=== PATIENT | female | born 1960 | race Caucasian/White ===

== ENCOUNTER 2020-06-19 14:54 | Emergency (ER) | payer OTHER ==
--- OUTSIDE RECORDS SUMMARY | 2020-06-19 14:57 | XMS REPORT | Clinical Summary ---
:1960 Author Organization [facility] Address [address] [place] [address] Care Team Providers Name Role Phone Suzy Dean Primary Care Provider Allergies No Known Active Allergies Medications Medication Sig Dispensed Refills Start Date End Date Status levothyroxine 150 mcg. 0 11/21/2014 Activ e (SYNTHROID, LEVOXYL) 150 mcg tablet losartan (COZAAR) 50 MG TK 1 T PO D 3 06/03/2016 Active tablet metFORMIN (GLUCOPHAGE) Take 500 mg by 0 Active 500 mg tablet mouth 2 (two) times a day with meals. ibuprofen (ADVIL) 200 Take 200 mg by 0 Active MG tablet mouth. [id number] Take 9 g by mouth 1 packet 0 05/18/2019 Active pgh-BnUe-IRi-asb-C take as directed 140-9-5.2 gram powder (as directed). in packet, sequential Active Problems Problem Noted Date De Quervain's tenosynovitis, right 08/12/2018 Osteoarthritis of right knee 07/15/2016 Encounters Date Type Specialty Care Team Description 06/18/2020 Travel 06/24/2019 Telephone Gastroenterology Alize Back MA 06/23/2019 Documentation Gastroenterology Enrique Rudd MD 06/21/2019 Telephone Gastroenterology Alize Back MA after 06/19/2019 Surgical History Surgery Date Site/Laterality Comments SECTION x3 KNEE ARTHROSCOPY Right CHOLECYSTECTOMY CARPAL TUNNEL RELEASE Right 1998 ARTHROPLASTY, KNEE, 07/15/2016 Knee/Right Procedure: T OTAL KNEE UNICOMPARTMENTAL ARTHROPLASTY; Surgeon: José Martinez MD; Location: [place] [id number] OR; Service: Orthopedics; Laterality: Righ t; Medical devices from this surgery are in the Implants sec tion. GALLBLADDER SURGERY ORTHOPEDIC SURGERY RELEASE, TENDON, HAND, FOR 09/24/2018 Hand/Right Proce dure: RELEASE, DEQUERVAIN'S TENOSYNOVITIS TENDO N, HAND, FOR DEQUERVAIN'S TENOSYNOVITIS; Surgeon: Maryanne Duran MD; Locatio n: [facility]; Service: Hand; Laterality: Righ t; TUBAL LIGATION 03/03/1987 - 04/02/1987 COLONOSCOPY 08/03/2011 - 08/02/2012 Medical History Medical History Date Comments Hypertension Hypothyroidism Anesthesia PONV HX/ nfhap. wear s full dentures PONV (postoperative nausea and vomiting) Exercise tolerance finding walking 30 m inutes/ 2 days/week. can climb 2 flights of s tairs. denies chest pain or sob Diabetes mellitus (HCC) "insulin resista nce" Wrist pain, right Anemia 2012 Gall stone 2016 Gall bladder removed Family History Medical History Relation Name Comments Cancer Father Father Colon cancer Father Father Hypertension Mother Stroke Mother Relation Name Status Comments Father Father Alive Mother Alive Social History Tobacco Use Types Packs/Day Years Used Date Former Smoker Cigarettes 0.25 1 04/09/1979 - 0 01/16/1980 Smokeless Tobacco: Former User Comments: quit 30 years ago Alcohol Use Drinks/Week oz/Week Comments Yes 2 Standard drinks or equivalent 2.0 cople of drinks a week Sex Assigned at Date Recorded Not on file Job Start Date Occupation Industry Not on file Not on file Not on file COVID-19 Exposure Response Date Recorded In the last month, have you been in contact with No / Unsure 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 Last Filed Vital Signs Not on file Plan of Treatment Date Type Specialty Care Team Description 07/04/2020 Office Visit Orthopedic Surgery Charleen Martinez MD [address] [facility] [address] [place], [place] [address] [phone] Health Maintenance Due Date Last Done Comments CERVICAL CANCER SCREENING 1982 BREAST CANCER SCREENING 2011 COLONOSCOPY SCREENING 2011 SHINGLES VACCINES (#1) 2011 INFLUENZA VACCINE 03/03/2020 Implants Implanted Type Area Healthcare Manager Device Shelf Model / Identifier Expiration Serial / Date Lot Univation F Meniscal Cpomonent Knee Implants, Right: [employer] 11/30/2020 [id number] / Implanted: Qty: 1 on 07/15/2016 by José Martinez MD at [facility] Repairs, Knee / Reconstruction [id number] As Univation Xf Femurf3 Rm Knee Implants, Right: [employer] 10/31/2025 [id number] / Implanted: Qty: 1 on 07/15/2016 by José Martinez MD at [facility] Repairs, Knee / Reconstruction [id number] As Univation Xf Tibiat2 Rm Knee Implants, Right: [employer] 10/31/2025 [id number] / Implanted: Qty: 1 on 07/15/2016 by José Martinez MD at [facility] Repairs, Knee / Reconstruction [id number] Cement Bone R+G 1dose [place] - [id number] Knee Joint Right: [employer] 03/02/2020 [id number] / Implanted: 07/15/2016 at [facility] (Quantity not on file) Implants Knee / [id number] Pin Headed Thred Univl 3.2x25mm [place] - [id number] Knee Joint N/A: AES[employer]AP ORTHO 07/03/2026 [id number] / Implanted: 07/17/2016 at [facility] (Quantity not on file) Implants N/A / NA Results Not on fileafter 06/19/2019 Advance Directives For more information, please contact: [phone] Type Date Recorded Patient Diazo Technician Explanati on Advance Directives, Living Will and Medical Power of Computer Tape Librarian
[2020-06-19] MEDS ORDERED: HYDROCODONE/APAP 10/325 TAB ONE (16:16)
--- NOTE | 2020-06-19 16:59 | RAD REPORT ---
EXAM DESCRIPTION: RAD - Knee Left 3 View - 06/19/2020 4:29 pm CLINICAL HISTORY: PAIN COMPARISON: No comparisons FINDINGS: Mild medial compartment space narrowing is evident. No significant suprapatellar joint eff usion. No acute fracture or dislocation evident.
--- NOTE | 2020-06-19 17:28 | RAD REPORT ---
EXAM DESCRIPTION: US - Extremity Nonvascular Limited - 06/19/2020 5:15 pm CLINICAL HISTORY: PAIN COMPARISON: No comparisons TECHNIQUE: Real-time sonographic evaluation of the area of interest was performed. FINDINGS: A 2 x 1 cm cyst is present in the left popliteal fossa, likely Kapoor's cyst.
--- NOTE | 2020-06-19 17:39 | EDPHYS ---
Physician Documentation [facility] Name: Tabitha Jim Age: 60 yrs Sex: Female : 1960 Arrival Date: 06/19/2020 Time: 14:56 Bed 20 Private MD: ABHIJEET Yanez Stephanie ED Physician Vincent Goins HPI: 06/20 06:38 This 60 yrs old Female presents to ER via Wheelchair with complaints of Knee kdr Injury. 06:38 The patient presents with an injury, pain, that is acute, tenderness, weakness. The kdr complaints affect the posterior aspect of left knee. Context: The problem was sustained at home, resulted from an unknown cause, the patient can partially bear weight, the patient is able to ambulate, with mild difficulty, Problem is a result from a previous injury: No. Onset: The symptoms/episode began/occurred suddenly, 2 day(s) ago. Modifying factors: The symptoms are alleviated by remaining still, the symptoms are aggravated by movement, weight bearing. Associated signs and symptoms: The patient has no apparent associated signs or symptoms. Treatment prior to arrival includes: no previous treatment. Severity of symptoms: At their worst the symptoms were mild, moderate, incapacitating, in the emergency department the symptoms have improved, mildly. The patient has not experienced similar symptoms in the past. The patient has not recently seen a physician. 06:38 The patient has had pain for the last couple of days in the left knee. No known injury kdr or precipitating factors. Was walking today and she had pain in the back of her knee and her leg gave out on her. She has had a knee replacement on the right. She has no other associated injuries and does not appear in any acute distress. Historical: - Allergies: 06/19 15:21 No Known Allergies; ss - PMHx: 15:21 Hypertension; Diabetes - IDDM; Hypothyroidism; ss - PSHx: 15:21 Cholecystectomy; ; Knee surgery; ss - Immunization history:: Flu vaccine is not up to date. - Social history:: Smoking status: Patient denies any tobacco usage or history of. ROS: 06/20 06:38 Constitutional: Negative for fever, chills, and weight loss, Eyes: Negative for injury, kdr pain, redness, and discharge, ENT: Negative for injury, pain, and discharge, Neck: Negative for injury, pain, and swelling, Cardiovascular: Negative for chest pain, palpitations, and edema, Respiratory: Negative for shortness of breath, cough, wheezing, and pleuritic chest pain, Abdomen/GI: Negative for abdominal pain, nausea, vomiting, diarrhea, and constipation, Back: Negative for injury and pain, : Negative for injury, bleeding, discharge, and swelling, Skin: Negative for injury, rash, and discoloration, Neuro: Negative for headache, weakness, numbness, tingling, and seizure activity. Psych: Negative for depression, anxiety, suicide ideation, homicidal ideation, and hallucinations, Allergy/Immunology: Negative for hives, rash, and allergies, Endocrine: Negative for neck swelling, polydipsia, polyuria, polyphagia, and marked weight changes, Hematologic/Lymphatic: Negative for swollen nodes, abnormal bleeding, and unusual bruising. MS/extremity: Positive for pain, tenderness, of the posterior aspect of left knee. Exam: 06:38 Constitutional: This is a well developed, well nourished patient who is awake, alert, kdr and in no acute distress. Head/Face: Normocephalic, atraumatic. 06:38 Musculoskeletal/extremity: Extremities: grossly normal except: noted in the posterior aspect of left knee and left knee: decreased ROM, pain, tenderness, ROM: intact in all extremities, Circulation is intact in all extremities. Pulses: Joints: the left knee displays painful range of motion, swelling, tenderness, There is pain in the popliteal space and mild diffuse swelling. Vital Signs: 06/19 15:19 BP 176 / 87; Pulse 81; Resp 17; Temp 97.0; Pulse Ox 100% ; Weight 104.33 kg; Height 5 ss ft. 5 in. (165.10 cm); Pain 7/10; 16:36 BP 158 / 81; Pulse 75; Resp 18; Pulse Ox 100% on R/A; Pain 4/10; tw2 17:27 BP 145 / 81; Pulse 76; Resp 17; Pulse Ox 100% on R/A; tw2 15:19 Body Mass Index 38.27 (104.33 kg, 165.10 cm) ss MDM: 17:39 Patient medically screened. kdr 06/20 06:45 Data reviewed: vital signs, nurses notes, radiologic studies. Counseling: I had a kdr detailed discussion with the patient and/or guardian regarding: the historical points, exam findings, and any diagnostic results supporting the discharge/admit diagnosis, radiology results, the need for outpatient follow up. 06/19 15:56 Order name: Knee Left 3 View XRAY; Complete Time: 17:37 kdr 06/19 15:56 Order name: US Extrmty Nonvasular Limited; Complete Time: 17:37 kdr 06/19 17:44 Order name: Jonatan wrap-joint; Complete Time: 17:44 tw2 Administered Medications: 06/19 16:06 Drug: [place] 10 mg-325 mg 1 tabs {Note: RASS 0, pain 7/10.} Route: PO; tw2 16:36 Follow up: Response: No adverse reaction; Pain is decreased; RASS: Alert and Calm (0) tw2 Disposition: 06/19/20 17:39 Discharged to Home. Impression: Pain in left knee, Synovial cyst of popliteal space [Kapoor], left knee. - Condition is Stable. - Discharge Instructions: Kapoor Cyst, Musculoskeletal Pain, Knee Pain. - Prescriptions for Tramadol 50 mg Oral Tablet - take 1 tablet by ORAL route every 8 hours as needed; 12 tablet. - Medication Reconciliation Form, Thank You Letter, Prescription Opioid Use, Work release form form. - Follow up: Private Physician; When: 2 - 3 days; Reason: If symptoms return, Further diagnostic work-up, Recheck today's complaints, Continuance of care, Re-evaluation by your physician. Follow up: Frank Whelan MD; When: 2 - 3 days; Reason: If symptoms return, Further diagnostic work-up, Recheck today's complaints, Continuance of care, Re-evaluation by your physician. - Problem is new. - Symptoms have improved. Signatures: Dispatcher [employer] EDMS Vincent Goins MD MD [facility] Shelby Evangelista RN RN ss Hilary Butler RN RN tw2 Corrections: (The following items were deleted from the chart) 17:51 17:39 06/19/2020 17:39 Discharged to Home. Impression: Pain in left knee; Synovial cyst tw2 of popliteal space [Kapoor], left knee. Condition is Stable. Forms are Work release form, Medication Reconciliation Form, Thank You Letter, Antibiotic Education, Prescription Opioid Use. Follow up: Private Physician; When: 2 - 3 days; Reason: If symptoms return, Further diagnostic work-up, Recheck today's complaints, Continuance of care, Re-evaluation by your physician. Follow up: Frank Whelan; When: 2 - 3 days; Reason: If symptoms return, Further diagnostic work-up, Recheck today's complaints, Continuance of care, Re-evaluation by your physician. Problem is new. Symptoms have improved. kdr
--- NOTE | 2020-06-19 17:39 | ER ---
Nurse's Notes [facility] Name: Tabitha Jim Age: 60 yrs Sex: Female : 1960 Arrival Date: 06/19/2020 Time: 14:56 Bed 20 Private MD: ABHIJEET Yanez Stephanie Diagnosis: Pain in left knee;Synovial cyst of popliteal space [Kapoor], left knee Presentation: 06/19 15:19 Chief complaint: Patient states: Left knee pain since Thursday. Left knee gave out ss today. Coronavirus screen: Client denies travel out of the [place] in the last 14 days. At this time, the client does not indicate any symptoms associated with coronavirus-19. Ebola Screen: Patient denies travel to an Ebola-affected area in the 21 days before illness onset. Initial Sepsis Screen: Does the patient meet any 2 criteria? No. Patient's initial sepsis screen is negative. Does the patient have a suspected source of infection? Yes: Bone or joint infection. Risk Assessment: Do you want to hurt yourself or someone else? Patient reports no desire to harm self or others. Onset of symptoms was June 16, 2020. 15:19 Method Of Arrival: Wheelchair ss 15:19 Acuity: DON 4 ss Historical: - Allergies: 15:21 No Known Allergies; ss - PMHx: 15:21 Hypertension; Diabetes - IDDM; Hypothyroidism; ss - PSHx: 15:21 Cholecystectomy; ; Knee surgery; ss - Immunization history:: Flu vaccine is not up to date. - Social history:: Smoking status: Patient denies any tobacco usage or history of. Screenin:26 Abuse screen: Denies threats or abuse. Nutritional screening: No deficits noted. tw2 Tuberculosis screening: No symptoms or risk factors identified. Fall Risk None identified. Assessment: 15:26 General: Appears in no apparent distress. uncomfortable, obese, well groomed, Behavior tw2 is calm, cooperative, appropriate for age. Pain: Complains of pain in left knee. Neuro: Level of Consciousness is awake, alert, obeys commands, Oriented to person, place, time, situation. Cardiovascular: Patient's skin is warm and dry. Respiratory: Airway is patent Respiratory effort is even, unlabored, Respiratory pattern is regular, symmetrical. GI: No signs and/or symptoms were reported involving the gastrointestinal system. : No signs and/or symptoms were reported regarding the genitourinary system. EENT: No signs and/or symptoms were reported regarding the EENT system. Derm: No signs and/or symptoms reported regarding the dermatologic system. Musculoskeletal: Circulation, motion, and sensation intact. Range of motion: intact in all extremities. 15:54 Reassessment: provider at bedside at this time. tw2 16:36 Reassessment: Patient appears in no apparent distress at this time. No changes from tw2 previously documented assessment. Patient and/or family updated on plan of care and expected duration. Pain level reassessed. Patient is alert, oriented x 3, equal unlabored respirations, skin warm/dry/pink. Patient states feeling better. Patient states symptoms have improved. 17:27 Reassessment: Patient appears in no apparent distress at this time. No changes from tw2 previously documented assessment. Patient and/or family updated on plan of care and expected duration. Pain level reassessed. Patient is alert, oriented x 3, equal unlabored respirations, skin warm/dry/pink. 17:46 Reassessment: provider at bedside at this time discussing results. tw2 17:51 Reassessment: Patient appears in no apparent distress at this time. No changes from tw2 previously documented assessment. Patient and/or family updated on plan of care and expected duration. Pain level reassessed. Patient is alert, oriented x 3, equal unlabored respirations, skin warm/dry/pink. Vital Signs: 15:19 BP 176 / 87; Pulse 81; Resp 17; Temp 97.0; Pulse Ox 100% ; Weight 104.33 kg; Height 5 ss ft. 5 in. (165.10 cm); Pain 7/10; 16:36 BP 158 / 81; Pulse 75; Resp 18; Pulse Ox 100% on R/A; Pain 4/10; tw2 17:27 BP 145 / 81; Pulse 76; Resp 17; Pulse Ox 100% on R/A; tw2 15:19 Body Mass Index 38.27 (104.33 kg, 165.10 cm) ss ED Course: 14:56 Patient arrived in ED. as 14:56 ABHIJEET Yanez Stephanie is Private Physician. as 15:18 Vincent Goins MD is Attending Physician. kdr 15:20 Triage completed. ss 15:20 Arm band placed on Patient placed in an exam room, on a stretcher. ss 15:21 Placed in gown. Call light in reach. Adult w/ patient. tw2 15:25 Hilary Butler, RN is Primary Nurse. tw2 16:29 Knee Left 3 View XRAY In Process Unspecified. EDMS 17:15 US Extrmty Nonvasular Limited In Process Unspecified. EDMS 17:38 Frank Whelan MD is Referral Physician. kdr 17:46 No provider procedures requiring assistance completed. Patient did not have IV access tw2 during this emergency room visit. Administered Medications: 16:06 Drug: [place] 10 mg-325 mg 1 tabs {Note: RASS 0, pain 7/10.} Route: PO; tw2 16:36 Follow up: Response: No adverse reaction; Pain is decreased; RASS: Alert and Calm (0) tw2 Outcome: 17:39 Discharge ordered by MD. kdr 17:46 Discharged to home via wheelchair, with family. tw2 17:46 Condition: stable 17:46 Discharge instructions given to patient, family, Instructed on discharge instructions, follow up and referral plans. safety practices, [facility] checks Demonstrated understanding of instructions, follow-up care, medications, Prescriptions given X 1. 17:51 Patient left the ED. tw2 Signatures: Dispatcher [employer] EDMS Vincent Goins MD MD kdr Amy Hernandez Shelby, RN RN Hilary Butler, KEON RN tw2 Corrections: (The following items were deleted from the chart) 16:37 16:36 Reassessment: Patient appears in no apparent distress at this time. No changes tw2 from previously documented assessment. Patient and/or family updated on plan of care and expected duration. Pain level reassessed. Patient is alert, oriented x 3, equal unlabored respirations, skin warm/dry/pink. tw2
[2020-06-20 01:45] VITALS: TEMP 97; O2SAT 100
[2020-06-20 01:48] VITALS: BP 145/81
== END 2020-06-19 17:51 | disposition home or self-care (01) ==
LOC: ER 14:54
DX: M71.22 Synovial cyst of popliteal space [Baker], left knee (principal); I10 Essential (primary) hypertension
CPT/HCPCS: 76882; 99283

== ENCOUNTER 2020-08-22 18:57 | Emergency (ER) | payer OTHER ==
--- OUTSIDE RECORDS SUMMARY | 2020-08-22 19:00 | XMS REPORT | Clinical Summary ---
:1960 Author Organization [facility] Address [address] [place] [address] Care Team Providers Name Role Phone Asked, No Pcp Primary Care Provider Unavailable Allergies No Known Active Allergies Medications Medication Sig Dispensed Refills Start Date End Date Status levothyroxine 150 mcg. 0 11/21/2014 Activ e (SYNTHROID, LEVOXYL) 150 mcg tablet ibuprofen (ADVIL) Take 200 mg 0 Active 200 MG tablet by mouth. Accu-Chek Guide 0 08/03/2020 Act melissa test strips strip test strips Accu-Chek Fastclix 0 08/03/2020 Active Lancet Drum misc levothyroxine TAKE 137 MCG 0 05/17/2020 Ac tive (SYNTHROID) 137 BY MOUTH 2 mcg tablet (TWO) TIMES A WEEK. losartan (COZAAR) 0 08/03/2020 A ctive 100 MG tablet metFORMIN XR 0 07/11/2020 Active (GLUCOPHAGE-XR) 500 mg 24 hr tablet naloxegoL Take 1 tablet 30 tablet 1 08/10/2020 Activ e (MOVANTIK) 25 mg (25 mg total) tablet tablet by mouth daily before breakfast. tiZANidine Take 1 tablet 30 tablet 2 08/10/2020 Acti ve (ZANAFLEX) 2 MG (2 mg total) 1 tablet by mouth every 8 (eight) hours as needed for muscle spasms for up to 30 days. ondansetron Take 1 tablet 20 tablet 2 08/10/2020 Act melissa (Zofran) 4 MG (4 mg total) tablet by mouth every 8 (eight) hours as needed for nausea or vomiting. zolpidem (AMBIEN) Take 1 tablet 30 tablet 0 08/10/2020 02 Active 5 MG tablet (5 mg total) 1 by mouth nightly as needed for sleep for up to 30 days. losartan (COZAAR) TK 1 T PO D 3 06/03/2016 Discontinued 50 MG tablet 1 (Med Li st Cleanup) metFORMIN Take 500 mg 0 Disconti nued (GLUCOPHAGE) 500 by mouth 2 1 (M ed List mg tablet (two) times a Cleanu p) day with meals. [id number] Take 9 g by 1 packet 0 05/18/2019 Disco ntinued [id number] mouth take as 0 140-9-5.2 gram directed (as powder in packet, directed). sequential traMADoL (ULTRAM) TK 1 T PO Q 0 06/19/2020 Discontinued 50 mg tablet EIGHT H PRN 0 (Med List Cleanup) acetaminophen-code Take 1 tablet 20 tablet 0 06/20/2020 ine (TYLENOL WITH by mouth 0 CODEINE #3) 300-30 every 6 (six) mg per hours as tabletIndications: needed for acute pain moderate pain for up to 10 days .acute pain. celecoxib Take 1 90 capsule 3 07/19/2020 (CeleBREX) 200 MG capsule (200 1 capsule mg total) by mouth daily for 30 days. me-tetrahydrofolat Take 1 60 capsule 3 07/19/2020 Discontinued [id number] capsule by 1 (Med L ist (Rheumate, with mouth 2 (two) Cleanup) [facility] times a day. 1-1-500 mg capsule HYDROcodone-acetam Take 1 tablet 32 tablet 0 08/10/2020 inophen (NORCO) by mouth 1 10-325 mg per every 4 tabletIndications: (four) hours acute pain as needed for severe pain for up to 7 days .acute pain. Max Daily Amount: 6 tablets Active Problems Problem Noted Date Old bucket handle tear of medial meniscus of left knee 07/24/2020 Overview: Added automatically from request for francine hai [id number] De Quervain's tenosynovitis, right 08/12/2018 Osteoarthritis of right knee 07/15/2016 Encounters Date Type Specialty Care Team Description 08/13/2020 Anesthesia Event Orthopedic Surgery Alfonso Mei MD 08/13/2020 Surgery Orthopedic Surgery José Martinez SCELANNY, KNEEMaxine MD MEDIAL, ARTHROS COPIC 08/13/2020 Hospital Encounter Orthopedic Surgery Richard Martinez MD tear of medial meniscus of lef t knee 08/13/2020 Travel 08/10/2020 Telemedicine Orthopedic Surgery Flavia Moone t handle Wanda tear of medial Jenifer, PA meniscus of le ft knee (Primary D x) 08/10/2020 Travel 08/09/2020 Travel 08/06/2020 Travel 08/06/2020 Orders Only Orthopedic Surgery Flavia Moone t handle Wanda tear of medial Jenifer, PA meniscus of le ft knee (Primary D x) 07/24/2020 Prep for Surgery Orthopedic Surgery Flavia Moon ucket handle Wanda tear of medial Jenifer, PA meniscus of le ft knee (Primary D x) 07/18/2020 Office Visit Orthopedic Surgery José Martinez MD tear of medial meniscus of lef t knee (Primary D x) 07/18/2020 Travel 07/05/2020 Office Visit Orthopedic Surgery José Martinez Recu rrent subluxation of patella, left knee (Primary Dx); MD Flavia Goodman le tear of medial meniscus of left knee 07/05/2020 Travel 06/20/2020 Office Visit Orthopedic Surgery José Martinez Acut e pain of left knee (Primary Dx); MD Maxine Acute internal derangement of left knee Gerry Duran MD 06/20/2020 Travel 06/18/2020 Travel after 08/22/2019 Surgical History Surgery Date Site/Laterality Comments SECTION x3 KNEE ARTHROSCOPY Right CHOLECYSTECTOMY CARPAL TUNNEL RELEASE Right 1998 ARTHROPLASTY, KNEE, 07/15/2016 Knee/Right Procedure: T OTAL KNEE UNICOMPARTMENTAL ARTHROPLASTY; Surgeon: José Martinez MD; Location: [facility] OR; Service: Orthopedics; Laterality: Righ t; Medical devices from this surgery are in the Implants sec tion. GALLBLADDER SURGERY ORTHOPEDIC SURGERY RELEASE, TENDON, HAND, FOR 09/24/2018 Hand/Right Proce dure: RELEASE, DEQUERVAIN'S TENOSYNOVITIS TENDO N, HAND, FOR DEQUERVAIN'S TENOSYNOVITIS; Surgeon: Maryanne Duran MD; Locatio n: [facility] OR; Service: Hand; Laterality: Righ t; TUBAL LIGATION 03/03/1987 - 04/02/1987 COLONOSCOPY 08/03/2011 - 08/02/2012 ABDOMINAL SURGERY 08/03/2015 - 08/02/2016 JOINT REPLACEMENT 08/03/2015 - 08/02/2016 MENISCECTOMY, KNEE, MEDIAL, 08/13/2020 Knee/Left Proc edure: ARTHROSCOPIC MENISCECTOMY, KN EE, MEDIAL, ARTHROSC OPIC; Surgeon: José Gonzalez MD; Location: [facility] OR; Service: Orthopedics; Laterality: Left ; Medical History Medical History Date Comments Hypertension Hypothyroidism Anesthesia PONV HX/ nfhap. wear s full dentures PONV (postoperative nausea and vomiting) Exercise tolerance finding walking 30 m inutes/ 2 days/week. can climb 2 flights of s tairs. denies chest pain or sob Diabetes mellitus (HCC) "insulin resista nce" Wrist pain, right Anemia 2012 Gall stone 2015 Gall bladder removed Arthritis 2009 Family History Medical History Relation Name Comments Cancer Father Father Colon cancer Father Father Diabetes Mother Mother Hypertension Mother Mother Stroke Mother Mother Relation Name Status Comments Father Father Alive Mother Mother Alive Social History Tobacco Use Types Packs/Day Years Used Date Former Smoker Cigarettes 0.25 1 04/09/1979 - 0 01/16/1980 Smokeless Tobacco: Never Used Comments: quit 30 years ago Alcohol Use Drinks/Week oz/Week Comments Yes 0 Glasses of wine 2.0 cople of drinks a week 0 Cans of beer 0 Shots of liquor 2 Standard drinks or equivalent Sex Assigned at Date Recorded Not on file Job Start Date Occupation Industry Not on file Not on file Not on file COVID-19 Exposure Response Date Recorded In the last month, have you been in contact with No / Unsure 08/13/2020 6:13 AM MARKETING MGR someone who was confirmed or suspected to have Coronavirus / COVID-19? Last Filed Vital Signs Vital Sign Reading Time Taken Comments Blood Pressure 171/76 08/13/2020 1:00 PM MARKETING MGR Pulse 89 08/13/2020 1:00 PM MARKETING MGR Temperature 37.1 C (98.8 F) 08/13/2020 1:00 PM MARKETING MGR Respiratory Rate 17 08/13/2020 1:00 PM MARKETING MGR Oxygen Saturation 98% 08/13/2020 1:00 PM MARKETING MGR Inhaled Oxygen Concentration - - Weight 104 kg (229 lb 12.8 oz) 08/13/2020 7:00 AM MARKETING MGR Height 165.1 cm (5' 5") 08/13/2020 7:00 AM MARKETING MGR Body Mass Index 38.24 08/13/2020 7:00 AM MARKETING MGR Plan of Treatment Health Maintenance Due Date Last Done Comments DIABETES: RETINAL EYE EXAM 1971 DIABETIC FOOT EXAM 1971 URINE MICROALBUMIN 1971 COVID-19 VACCINE (1 of 2) 1977 CERVICAL CANCER SCREENING 1982 BREAST CANCER SCREENING 2011 COLONOSCOPY SCREENING 2011 SHINGLES VACCINES (#1) 2011 INFLUENZA VACCINE 03/03/2020 Implants Implanted Type Area Operations Support Representative Device Shelf Model / Identifier Expiration Serial / Date Lot Univation F Meniscal Cpomonent Knee Implants, Right: [employer] 11/30/2020 [id number] / Implanted: Qty: 1 on 07/15/2016 by José Martinez MD at [facility] Repairs, Knee / Reconstruction [id number] As Univation Xf Femurf3 Rm Knee Implants, Right: [employer] 10/31/2025 [id number] / Implanted: Qty: 1 on 07/15/2016 by José Martinez MD at [facility] Repairs, Knee / Reconstruction [id number] As Univation Xf Tibiat2 Rm Knee Implants, Right: [employer] 10/31/2025 [id number] / Implanted: Qty: 1 on 07/15/2016 by José Martinez MD at [facility] Repairs, Knee / Reconstruction [id number] Cement Bone R+G 1dose [place] - [id number] Knee Joint Right: [employer] 03/02/2020 [id number] / Implanted: 07/15/2016 at [facility] (Quantity not on file) Implants Knee / [id number] Pin Headed Thred Univl 3.2x25mm [place] - [id number] Knee Joint N/A: AESC[employer]AP ORTHO 07/03/2026 [id number] / Implanted: 07/17/2016 at [facility] (Quantity not on file) Implants N/A / NA Procedures Procedure Name Priority Date/Time Associated Comments Diagnosis POC GLUCOSE Routine 08/13/2020 10:34 Results for this AM MARKETING MGR procedure are i n the results section. CA AN ELECTIVE Routine 08/13/2020 9:49 Results f or this SUPRAGLOTTIC AIRWAY AM MARKETING MGR procedur e are in the results section. MENISCECTOMY, KNEE, 08/13/2020 9:19 Old bucket handle MEDIAL, ARTHROSCOPIC AM MARKETING MGR tear of medial meniscus of left knee POC GLUCOSE Routine 08/13/2020 7:06 Results for this AM MARKETING MGR procedure are i n the results section. COVID-19 QUALITATIVE Routine 08/10/2020 2:32 Old bucket handl e Results for this PCR PM MARKETING MGR tear of medial procedure are in meniscus of left the results knee section. MRI KNEE WO CONTRAST Routine 06/26/2020 3:58 Acute pain of le ft Results for this LEFT PM MARKETING MGR knee procedure are in Acute internal the results derangement of left section. knee XR KNEE 4+ VW LEFT Routine 06/20/2020 3:08 Acute pain of left Results for this PM MARKETING MGR knee procedure are i n the results section. CA ARTHROCENTESIS Routine 06/20/2020 2:45 Acute pain of left Results for this ASPIR&/INJ MAJOR PM MARKETING MGR knee procedure are in JT/BURSA W/O US Acute internal the result s derangement of left section. knee after 08/22/2019 Results POC glucose (08/13/2020 10:34 AM MARKETING MGR)Only the most recent of2 resultswithin the time period is included. Pathologist Sig nature POC glucose 115 (H) 65 - 99 mg/dL [facility] Comment: HOSPITAL Knotter Name: Nathaniel Kerns Device ID: [id number] Chartable: [facility] Notified RN Specimen Blood Performing Organization Address City/State/ZIP Code Phon e Number [facility] DEPARTMENT OF PATHOLOGY AND [address] [place], [place] [address] GENOMIC MEDICINE [facility] [address] [place] [id number] Airway (08/13/2020 9:49 AM MARKETING MGR) Narrative Performed At Thomas Clifford CRNA 08/13/2020 9:50 AM Airway Date/Time: 08/13/2020 9:38 AM Location: OR Performed by: AUTO BODY SERVICE MECHANIC/AA Anesthesiologist: Alfonso Mei MD Resident/AUTO BODY SERVICE MECHANIC/AA: Thomas Clifford Authorized by: Alfonso Mei MD Urgency: Elective Difficult Airway: No Preoxygenated with 100% O2: Yes C-spine Precautions Maintained Throughou t: Yes Mask Ventilation: Not attempted Final Airway Type: Supraglottic airway Final LMA: I-Gel LMA Size: 4 Number of Attempts at Approach: 1 Atraumatic insertion of LMA. Soft tissue unchanged fr om baseline. COVID-19 qualitative PCR (08/10/2020 2:32 PM MARKETING MGR) Interpretation Negative results do not prec lude 2019-nCoV infection and should not be used as the sole basis for treatment or other patient management decisions. Negative results must be combined with clinical observations, patient history, and epidemiological [facility] information. [facility] COVID-19 qualitative Not-Detected Not-Detecte [facility] PCR result d [facility] COVID-19 qualitative See link below for [facility] PCR PDF Lab [facility] ReportComment: Case HOSPITAL Number: [id number] Specimen Nasopharyngeal swab Performing Organization Address City/State/ZIP Code Phon e Number [facility] DEPARTMENT OF PATHOLOGY AND [address] [place], [place] [address] GENOMIC MEDICINE [facility] [address] [place] [address] [facility] MRI Knee Left Wo Contrast (06/26/2020 3:58 PM MARKETING MGR) Specimen Narrative Performed At This result has an attachment that is no t available. MRI KNEE WO CONTRAST LEFT [facility] CLINICAL INDICATION: M25.562 Pain in l eft knee, M23.92 Unspecified internal derangement of left knee, Knee pain neg xray or effusion only TECHNIQUE: Multiplanar multisequence M R imaging of the left knee was performed without gadolinium contrast. COMPARISON: None. FINDINGS: Cruciate ligaments: Intact Menisci: There is a well-defined radia l tear involving the root of the medial meniscus without medial meniscal extrusion. Collateral ligaments: Minimal edema is noted superficial to the medial collateral ligament without intrinsic signal or sprain. Fibular collateral ligament markable. Bone marrow: No fracture or focal osseous lesion. Articular cartilage: There is prominen t chondral degeneration and focal loss involving the median ridge cranially. Femoral trochlear cartilage is maintained. Mild focal degeneration involving the posterior medial femoral condyle. Effusion: Physiologic joint fluid Extensor mechanism: Quadriceps and pat ellar tendons are intact. Retinacula are unremarkable. TT-TG interval measures 14 mm. Soft tissues: Minute Kapoor's cyst noted. IMPRESSION: 1. Radial tear involving the root of the medial menisc us. 2. Moderate chondromalacia patella. *[facility]-[id number] Procedure Note Hm Interface, Radiology Results Incoming - 06/26/2020 4:06 PM MARKETING MGR MRI KNEE WO CONTRAST LEFT CLINICAL INDICATION: M25.562 Pain in le ft knee, M23.92 Unspecified internal derangement of left knee, Knee pain neg xray or effusion only TECHNIQUE: Multiplanar multisequence MR imaging of the left knee was performed without gadolinium contrast. COMPARISON: None. FINDINGS: Cruciate ligaments: Intact Menisci: There is a well-defined radial tear involving the root of the medial meniscus without medial meniscal extrusion. Collateral ligaments: Minimal edema is noted superficial to the medial collateral ligament without intrinsic signal or sprain. Fibular collateral ligament markable. Bone marrow: No fracture or focal osseo us lesion. Articular cartilage: There is prominent chondral degeneration and focal loss involving the median ridge cranially. Femoral trochlear cartilage is maintained. Mild focal degeneration involving the posterior medial femoral condyle. Effusion: Physiologic joint fluid Extensor mechanism: Quadriceps and diaz llar tendons are intact. Retinacula are unremarkable. TT-TG interval measures 14 mm. Soft tissues: Minute Kapoor's cyst noted . IMPRESSION: 1. Radial tear involving the root of the medial meniscus. 2. Moderate chondromalacia patella. *[facility]-[id number] Performing Organization Address City/State/ZIP Code Phon e Number [facility] [address] [place] [address] XR Knee 4+ Vw Left (06/20/2020 3:08 PM MARKETING MGR) Specimen Narrative Performed At This result has an attachment that is no t available. PA, lateral, notch and patella view of the left knee shows a patella [facility] malalignment and also minimal medial compartment narro wing. There are no spurs or soft tissue calcification. Performing Organization Address City/State/ZIP Code Phon e Number [facility] [address] [place] [address] Large Joint Arthrocentesis: knee, L knee (06/20/2020 2:45 PM MARKETING MGR) Narrative Performed At Gerry Duran MD 06/20/2020 4:06 PM Large Joint Arthrocentesis: knee, L knee Consent given by: patient Supporting Documentation Indications: pain Procedure Details Ultrasound guided: no Location: knee - L knee Left side: Needle size: 25 G Approach: anterior Left knee medications administered: 6 mg betamethasone acetate & sodium phosphate 6 mg/mL; 1 mL bupivacaine 0.25 % (2.5 mg/mL) Patient tolerance: patient tolerated the procedure wel l with no immediate complications after 08/22/2019 (Home) [facility] [phone] [place], [place] (Work) [address] Advance Directives For more information, please contact: [phone] Type Date Recorded Patient Private Advisor Explanati on Advance Directives, Living Will 08/10/2020 2:25 PM and Medical Power of Senior Sales Associate
--- OUTSIDE RECORDS SUMMARY | 2020-08-22 19:00 | XMS REPORT | Continuity of Care Document ---
:1960 Author Organization [facility] t Address [address] [place] [address] Care Team Providers Name Role Phone Asked, Pcp Primary Care Physician Unavailable Maxine Martinez MD Attending Clinician Chaz Mei MD Attending Clinician Jenifer Roche Attending Clinician JOHNATHAN Attending Clinician Unavailable SEN Admitting Clinician Unavailable Payers Payer Name Policy Type Policy Effective Date Expiration Date Sour ce Number AETNAAETNA PPO [id number] 2000 [place] OPEN 00:00:00 Yarsanism [id number] 2000-Present PPO Problems Condition Condition Condition Status Onset Resolution Last Treating Co mments Source Name Details Category Date Date Treatment Clinician Date Old bucket Old bucket Disease Active 2019-08 Overview : Maribel handle handle 2-22 Added [facility] tear of tear of 00:00: automatic st medial medial 00 ally from meniscus meniscus request of left of left for knee knee surgery [id number] De De Disease Active Maribel Quervain's Quervain's 1-10 Me thodi tenosynovi tenosynovi 00:00: st tis, right tis, right 00 Osteoarthr Osteoarthr Disease Active 2015-08 [place] itis of itis of 2-13 [facility] right knee right knee 00:00: st 00 Allergies, Adverse Reactions, Alerts This patient has no known allergies or adverse reactions. Family History Family Member Diagnosis Comments Start Date Stop Date Source Natural father Cancer [facility] Me thodist Natural father Colon cancer [facility] Yarsanism Natural mother Diabetes [facility] Me thodist Natural mother Hypertension [place] [facility] Natural mother Stroke [facility] thodist Social History Social Habit Start Date Stop Date Quantity Comments Source Sex Assigned At [facility] ethodist Exposure to Not sure Maribel Metho dist SARS-CoV-2 (event) Cigarettes smoked 2020-08-14 2020-08-14 Ky Chavisist current (pack per 00:00:00 00:00:00 day) - Reported Cigarette 2020-08-14 2020-08-14 [place] Palmira ist pack-years 00:00:00 00:00:00 Tobacco use and 2020-08-14 2020-08-14 Never used [place]ibel Fatuma ethodist exposure 00:00:00 00:00:00 Alcohol intake 2020-08-14 2020-08-14 Current drinker [place] [facility] 00:00:00 00:00:00 of alcohol (finding) Tobacco Comment 2016-07-15 2016-07-15 quit 30 years [place] [facility] 00:00:00 00:00:00 ago Alcohol Comment 2016-07-15 2016-07-15 [place]ople of drinks [place] [facility] 00:00:00 00:00:00 a week History of tobacco 1979-04-09 1980-01-16 Current smoker [place] [facility] use 00:00:00 00:00:00 Smoking Status Start Date Stop Date Source Former smoker 2020-08-14 00:00:00 2020-08-14 00:00:00 [place] Pappas Medications Ordered Filled Start Stop Current Ordering Indication Dosage Frequency Signature Comments Components Source Medication Medication Date Date Medication? Clinician (SIG) Name Name ibuprofen Yes 200mg Take 200 [place] (ADVIL) 200 1-11 mg by Methodi MG tablet 14:04: mouth. st 23 metFORMIN 2020-2020- No 500mg Q.5D Take 500 [place] (GLUCOPHAGE 1-08 01-08 mg by Method i ) 500 mg 09:05: 00:[address] tablet 19 :00 (two) times a day with meals. naloxegoL Yes 25mg QD Take 1 [place] (MOVANTIK) 1-08 tablet (25 Met hodi 25 mg 00:00: mg total) st tablet 00 by mouth tablet daily before breakfast. ondansetron Yes 4mg Q8H Take 1 [place] (Zofran) 4 -08 tablet (4 Meth beny MG tablet 00:00: mg total) st 00 by mouth every 8 (eight) hours as needed for nausea or vomiting. tiZANidine 2020- Yes 2mg Q8H Take 1 [place] (ZANAFLEX) 08-10 tablet (2 Met hodi 2 MG tablet 00:00: 23:59 mg total) st 00 :00 by mouth every 8 (eight) hours as needed for muscle spasms for up to 30 days. zolpidem 2020- Yes 5mg QD Take 1 [place] (AMBIEN) 5 08-10 tablet (5 Met hodi MG tablet 00:00: 23:59 mg total) st 00 :00 by mouth nightly as needed for sleep for up to 30 days. HYDROcodone 2020- No acute pain 1{tbl} Q4H Take 1 Ky -acetaminop 08-10 tablet by Me fernando osullivan (NORCO) 00:00: 23:[address] 10-325 mg 00 :00 every 4 per tablet (four) hours as needed for severe pain for up to 7 days .acute pain. Max Daily Amount: 6 tablets Accu-Chek Yes Maribel Guide test 08-03 Methodi strips 00:00: st strip test 00 strips Accu-Chek Yes [place] Fastclix 08-03 [facility] Lancet Drum 00:00: st misc 00 losartan Yes [place] (COZAAR) 08-03 Methodi 100 MG 00:00: st tablet 00 celecoxib 2019-08- No 200mg QD Take 1 [place] (CeleBREX) 09-19 capsule Metho di 200 MG 00:00: 23:59 ([address] capsule 00 :00 total) by mouth daily for 30 days. mn-tetrahyd 2019-08- No 1{capsu Q.5D Take 1 Ky rofolate-B1 09-19 le} capsule by Fatuma qureshi [id number] 00:00: 00:[address] (Rheumate, 00 :00 (two) with times a Quatrefolic day. ,) 1-1-500 mg capsule metFORMIN 2019-08 Yes Maribel XR 2-09 [facility] (GLUCOPHAGE 00:00: st -XR) 500 mg 00 24 hr tablet acetaminoph 2019-08- acute pain 1{tbl} Q6H Take 1 [place] en-codeine -18 -28 tablet by Met gibson (TYLENOL 00:00: 23:[address] WITH 00 :00 every 6 CODEINE #3) (six) 300-30 mg hours as per tablet needed for moderate pain for up to 10 days .acute pain. traMADoL 2019-08 TK 1 T PO [place] st[place] (ULTRAM) 50 1-17 12-03 Q EIGHT H Me thodi mg tablet 00:00: 00:[address] 00 :00 levothyroxi 2019-08 Yes TAKE 137 [place] ne 0-15 MCG BY [facility] (SYNTHROID) 00:00: MOUTH 2 st 137 mcg 00 (TWO) tablet TIMES A WEEK. [id number] 2018-08 9g Take 9 g [place] sul-NaCl-LOBO 016 18 by mouth Met gibson l-asb-C 00:00: 00:[address] 140-9-5.2 00 :00 directed gram powder (as in packet, directed). sequential losartan 2015-08 TK 1 T PO [place] st[place] (COZAAR) 50 1-01 01-08 D [facility] MG tablet 00:00: 00:00 st 00 :00 levothyroxi Yes 150ug 150 mcg. [place] ne 4-21 [facility] (SYNTHROID, 00:00: st LEVOXYL) 00 150 mcg tablet Vital Signs Vital Name Observation Time Observation Value Comments Source Systolic blood 2020-08-13 13:00:00 171 mm[Hg] Gatito gleason Yarsanism pressure Diastolic blood 2020-08-13 13:00:00 76 mm[Hg] David Pappas pressure Heart rate 2020-08-13 13:00:00 89 /min Ky Pappas Body temperature 2020-08-13 13:00:00 37.11 Loraine Willian Pappas Respiratory rate 2020-08-13 13:00:00 17 /min Willian Pappas Oxygen saturation in 2020-08-13 13:00:00 98 /min Ky Pappas Arterial blood by Pulse oximetry Body height 2020-08-13 07:00:00 165.1 cm Ky Pappas Body weight 2020-08-13 07:00:00 104.237 kg Ky Pappas BMI 2020-08-13 07:00:00 38.24 kg/m2 Ky Pappas Procedures Procedure Date / Time Performing Clinician Source Performed POC GLUCOSE 2020-08-13 10:34:00 Rogers Martinez IN AN ELECTIVE 2020-08-13 09:49:53 Thomas Clifford SUPRAGLOTTIC AIRWAY MENISCECTOMY, KNEE, 2020-08-13 09:19:00 Rogers Martinez storosibel Pappas MEDIAL, ARTHROSCOPIC POC GLUCOSE 2020-08-13 07:06:00 Rogers Martinez COVID-19 QUALITATIVE PCR 2020-08-10 14:32:00 Wanda Moon MRI KNEE WO CONTRAST LEFT 2020-06-26 15:58:35 Kermit Duran XR KNEE 4+ VW LEFT 2020-06-20 15:08:24 Kermit Duran IN ARTHROCENTESIS 2020-06-20 14:45:00 Kermit Duran ASPIR&/INJ MAJOR JT/BURSA W/O US Plan of Care Planned Activity Planned Date Details Comments Source Future Scheduled 2020-03-03 INFLUENZA VACCINE [place] [facility] Test 00:00:00 [code = INFLUENZA VACCINE] Future Scheduled [address] [facility] thodist Test 00:00:00 SCREENING [code = BREAST CANCER SCREENING] Future Scheduled 2011 COLONOSCOPY SCREENING [place] [facility] Test 00:00:00 [code = COLONOSCOPY SCREENING] Future Scheduled 2011 SHINGLES VACCINES (#1) [place] [facility]ism Test 00:00:00 [code = SHINGLES VACCINES (#1)] Future Scheduled [address] [facility] thodist Test 00:00:00 malignant neoplasm of cervix (procedure) [code = 085621156] Future Scheduled 1977 COVID-19 VACCINE (1 of [place] Yarsanism Test 00:00:00 2) [code = COVID-19 VACCINE (1 of 2)] Future Scheduled 1971 DIABETES: RETINAL EYE [place] [facility] Test 00:00:00 EXAM [code = DIABETES: RETINAL EYE EXAM] Future Scheduled 1971 DIABETIC FOOT EXAM [place] [facility] Test 00:00:00 [code = DIABETIC FOOT EXAM] Future Scheduled 1971 URINE MICROALBUMIN [place] [facility] Test 00:00:00 [code = URINE MICROALBUMIN] Encounters Start End Encounter Admission Attending Care Care Encounter Source Date/Time Date/Time Type Type Clinicians Facility Department ID 2020-08-13 2020-08-13 [place] [id number] Maribel 00:00:00 00:00:00 ROG[facility] [address] 2020-08-10 2020-08-10 Outpatient [facility] [id number] Maribel 00:00:00 00:00:[address] 2020-08-10 2020-08-10 [id number] Maribel 00:00:00 00:00:00 ROGERS [address] 2020-07-18 2020-07-18 [facility] [id number] Maribel 00:00:00 00:00:00 ROGERS [address] 2020-07-05 2020-07-05 [id number] Maribel 00:00:00 00:00:00 ROGERS [address] 2020-06-26 2020-06-26 Outpatient [facility] [id number] Maribel 00:00:00 00:00:00 [place] [address] 2020-06-20 2020-06-20 [facility] [id number] Maribel 00:00:00 00:00:00 KER[place] [address] 2020-06-20 2020-06-20 [id number] Maribel 00:00:00 00:00:00 ROGERS [address] Results Test Description Test Time Test Comments Results Result Comments Source POC glucose 2020-08-13 10:35:20 Test Item Value Reference Range Interpretation Comme nts POC glucose (test code = 115 mg/dL 65-99 H Ope rator Name: Nathaniel Haile [id number]) ID: [id number] hartable: [facility] Notified loom tuner Interpretation (test code = Abnormal 71467-0) Ky [id number] 09:49:53Thomas Clifford CRNA 08/13/2020 9:50 AMAirway Date/Time: 08/13/2020 9:38 AM Location: OR Performed by: ELECTRIC MOTOR MECHANIC/AAAnesthesiologist: Alfonso Mei MDResident/ELECTRIC MOTOR MECHANIC/AA: Thomas Clifford HAuthorized by: Alfonso Mei MD Urgency: ElectiveDifficult Airway: No Preoxygenated with 100% O2: Yes C-spine Precautions Maintained Throughout: Yes Mask Ventilation: Not attemptedFinal Airway Type: Supraglottic airwayFinal LMA: I-GelLMA Size: 4Number of Attempts at Approach: 1 Atraumatic insertion of LMA. Soft tissue unchanged from baseline.Ky PappasFldougie Joint Arthrocentesis: knee, L [id number] 14:45:00Kermit Duran MD 06/20/2020 4:06 PMLarge Joint Arthrocentesis: knee, L kneeConsent given by: patientSupporting DocumentationIndications: pain Procedure DetailsUltrasound guided: noLocation: knee - L knee Left side:Needle size: 25 GApproach: anteriorLeft knee medications administered: 6 mg betamethasone acetate & sodium phosphate 6 mg/mL; 1 mL bupivacaine 0.25 % (2.5 mg/mL)Patient tolerance: patient tolerated the procedure well with no immediate complicationsKy Pappas
[2020-08-22] MEDS ORDERED: ONDANSETRON 4 MG/2 ML VIAL ONE (21:27)
[2020-08-22] MEDS ORDERED: NA CHLORIDE 0.9% 1,000 ML ONE (21:28)
[2020-08-22 21:54] LABS: Absolute Lymphocytes (CBC) 0.6 K/uL (0.7-4.9); Basophils % 0.3 % (0-1.3); Hematocrit 40.3 % (36.0-45.0); Lymphocytes % 17.5 % (15.3-44.8); MPV 8.9 fL (7.6-11.3); RBC Red Blood Cell Count 5.22 M/uL (3.86-4.86)
[2020-08-22 22:05] LABS: Albumin 3.8 g/dL (3.4-5.0); Bilirubin Direct 0.2 mg/dL (0-0.2); Bilirubin Total 0.8 mg/dL (0.2-1.0); Potassium 4.5 mmol/L (3.5-5.1); Protein, Total 7.5 g/dL (6.4-8.2)
--- NOTE | 2020-08-22 23:22 | ER ---
Nurse's Notes [facility] Name: Tabitah Jim Age: 60 yrs Sex: Female : 1960 Arrival Date: 08/22/2020 Time: 19:01 Bed 23 Private MD: Diagnosis: Coronavirus infection, unspecified;Diarrhea, unspecified;Dehydration Presentation: 08/22 19:15 Chief complaint: Patient states: Covid positive since Thursday. Started having diarrhea ll and nausea Thursday. Her doctor sent her in for possible dehydration. + dizziness with standing. Coronavirus screen: Client denies travel out of the [place] in the last 14 days. cough unrelated to allergies, diarrhea, difficulty breathing, fatigue, fever, headache, nausea, shortness of breath, loss of taste or smell, Client presents with at least one sign or symptom that may indicate coronavirus-19. Standard/surgical mask placed on the client. Client reports previous positive COVID test result. Ebola Screen: Patient denies travel to an Ebola-affected area in the 21 days before illness onset. Initial Sepsis Screen: Does the patient meet any 2 criteria? No. Patient's initial sepsis screen is negative. Does the patient have a suspected source of infection? Yes: Productive cough/pneumonia. Risk Assessment: Do you want to hurt yourself or someone else? Patient reports no desire to harm self or others. Onset of symptoms was August 17, 2020. 19:15 Method Of Arrival: Ambulatory ll1 19:15 Acuity: DON 3 ll1 Historical: - Allergies: 19:14 No Known Allergies; ll1 - PMHx: 19:14 Hypothyroidism; Hypertension; Diabetes - IDDM; ll1 - PSHx: 19:14 ; Knee surgery; Cholecystectomy; ll1 - Immunization history:: Flu vaccine is not up to date. - Social history:: Smoking status: Patient denies any tobacco usage or history of. Screenin:27 Abuse screen: Denies threats or abuse. Nutritional screening: No deficits noted. fu Tuberculosis screening: No symptoms or risk factors identified. Fall Risk None identified. Assessment: 21:00 General: Appears uncomfortable, Behavior is calm, cooperative, appropriate for age. fu Pain: Complains of pain in back pain Pain does not radiate. Pain currently is 5 out of 10 on a pain scale. Pain began Thursday Is intermittent. Neuro: Level of Consciousness is awake, alert, obeys commands, Oriented to person, place, time, situation, Assurance Assistant are equal bilaterally Moves all extremities. Gait is steady, Speech is normal, Facial symmetry appears normal, Reports dizziness, when standing up. Cardiovascular: Denies chest pain, palpitations, vomiting. Respiratory: Reports cough that is productive, diagnose with COVID las Friady. GI: Reports diarrhea, nausea. 21:00 : No signs and/or symptoms were reported regarding the genitourinary system. EENT: No fu signs and/or symptoms were reported regarding the EENT system. 22:00 Reassessment: Patient appears in no apparent distress at this time. Patient and/or fu family updated on plan of care and expected duration. Pain level reassessed. Patient is alert, oriented x 3, equal unlabored respirations, skin warm/dry/pink. 23:00 Reassessment: Patient appears in no apparent distress at this time. Patient and/or fu family updated on plan of care and expected duration. Pain level reassessed. Patient is alert, oriented x 3, equal unlabored respirations, skin warm/dry/pink. tolerating oral intake, denies nausea. 08/23 00:00 Reassessment: Patient appears in no apparent distress at this time. Patient and/or fu family updated on plan of care and expected duration. Pain level reassessed. Patient is alert, oriented x 3, equal unlabored respirations, skin warm/dry/pink. Vital Signs: 08/22 19:15 BP 114 / 70; Pulse 86; Resp 18; Temp 98.1; Pulse Ox 96% ; Weight 102.06 kg; Height 5 ll1 ft. 5 in. (165.10 cm); Pain 4/10; 21:34 BP 120 / 65 Supine; Pulse 78; Resp 19; Pulse Ox 98% on R/A; Pain 5/10; fu 21:34 BP 115 / 68 Sitting; Pulse 84; fu 21:34 BP 120 / 72 Standing; Pulse 88; fu 22:00 BP 116 / 66; Pulse 76; Resp 19; Pulse Ox 100% on R/A; fu 23:00 BP 108 / 66; Pulse 72; Temp 98.7; Pulse Ox 100% on R/A; fu 19:15 Body Mass Index 37.44 (102.06 kg, 165.10 cm) 1 ED Course: 19:01 Patient arrived in ED. mr 19:15 Arm band placed on. ll1 19:17 Triage completed. ll1 20:51 Charles Ly, RN is Primary Nurse. fu 20:51 Lai Brink PA is PHCP. cp 20:51 Lai Schroeder MD is Attending Physician. cp 21:25 Inserted saline lock: 22 gauge in right wrist, using aseptic technique. Blood collected.fu 21:28 Basic Metabolic Panel Sent. fu 21:28 CBC with Diff Sent. fu 21:29 Hepatic Function Sent. fu 21: Lipase Sent. fu 21:29 CBC with Automated Diff Sent. fu 21:29 Basic Metabolic Panel Sent. fu 23:00 Patient has correct armband on for positive identification. Bed in low position. Call fu light in reach. Side rails up X2. 23:20 Diet: Patient given snack. Patient given juice. jp3 23:25 Removal of peripheral IV. Catheter intact, dressing applied. jp3 23:27 No provider procedures requiring assistance completed. fu Administered Medications: 21:28 Drug: NS 0.9% 1000 ml Route: IV; Rate: 1 bolus; Site: right wrist; fu 23:30 Follow up: IV Intake: 1000ml fu 21:29 Drug: Zofran (Ondansetron) 4 mg Route: IVP; Site: right wrist; fu 22:42 Follow up: Response: No adverse reaction fu Intake: 23:30 IV: 1000ml; Total: 1000ml. fu Outcome: 23:21 Discharge ordered by . cp 08/23 00:04 Discharged to home ambulatory. fu Condition: good Discharge instructions given to patient, Instructed on discharge instructions, follow up and referral plans. Demonstrated understanding of instructions, follow-up care, medications, Prescriptions given X 3. 00:05 Patient left the ED. mw2 Signatures: Dinora Cristobal mr Lai Brink PA PA cp Charles Ly, RN RN Carlos Newell 2 Fco Heard jp3 Griselda Dubois RN RN 1
--- NOTE | 2020-08-22 23:22 | EDPHYS ---
Physician Documentation [facility] Name: Tabitha Jim Age: 60 yrs Sex: Female : 1960 Arrival Date: 08/22/2020 Time: 19:01 Bed 23 Private MD: ED Physician Lai Schroeder HPI: 08/22 21:15 This 60 yrs old Female presents to ER via Ambulatory with complaints of cp COVID+, Dizziness. 21:15 The patient presents to the emergency department with diarrhea, that is continuous. cp 21:15 Onset: The symptoms/episode began/occurred 5 day(s) ago. cp 21:15 Associated signs and symptoms: Pertinent positives: anorexia, nausea, Pertinent cp negatives: abdominal pain, constipation, fever, GI bleeding. Severity of symptoms: in the emergency department the symptoms are unchanged despite home interventions. Patient reports she and her daughter were diagnosed with COVID-19 last week. Historical: - Allergies: 19:14 No Known Allergies; ll1 - PMHx: 19:14 Hypothyroidism; Hypertension; Diabetes - IDDM; ll1 - PSHx: 19:14 ; Knee surgery; Cholecystectomy; ll1 - Immunization history:: Flu vaccine is not up to date. - Social history:: Smoking status: Patient denies any tobacco usage or history of. ROS: 21:20 Constitutional: Positive for poor PO intake, Negative for body aches, chills, fever. cp 21:20 Eyes: Negative for injury, pain, redness, and discharge. cp 21:20 ENT: Negative for ear pain, sore throat, difficulty swallowing, difficulty handling secretions. 21:20 Cardiovascular: Negative for chest pain, edema, palpitations. 21:20 Respiratory: Positive for cough, Negative for shortness of breath, wheezing. 21:20 Abdomen/GI: Positive for diarrhea, anorexia, Negative for abdominal pain, vomiting, constipation, black/tarry stool, rectal bleeding. 21:20 : Negative for urinary symptoms. 21:20 Neuro: Positive for dizziness, weakness, Negative for altered mental status, headache, syncope. 21:20 All other systems are negative. Exam: 21:30 Head/Face: Normocephalic, atraumatic. cp 21:30 Constitutional: The patient appears in no acute distress, alert, awake, non-toxic, well developed, well nourished. 21:30 Eyes: Periorbital structures: appear normal, Conjunctiva: normal, no exudate, no injection, Sclera: no appreciated abnormality, Lids and lashes: appear normal, bilaterally. 21:30 ENT: External ear(s): are unremarkable, Nose: is normal, Mouth: Lips: dry, Oral mucosa: moist, Posterior pharynx: Airway: no evidence of obstruction, patent. 21:30 Chest/axilla: Inspection: normal, Palpation: is normal, no crepitus, no tenderness. 21:30 Cardiovascular: Rate: normal, Rhythm: regular, Edema: is not appreciated, JVD: is not appreciated. 21:30 Respiratory: the patient does not display signs of respiratory distress, Respirations: normal, no use of accessory muscles, no retractions, labored breathing, is not present, Breath sounds: are clear throughout, no decreased breath sounds, no stridor, no wheezing. 21:30 Abdomen/GI: Inspection: abdomen appears normal, Bowel sounds: active, all quadrants, Palpation: abdomen is soft and non-tender, in all quadrants, rebound tenderness, is not appreciated, voluntary guarding, is not appreciated, involuntary guarding, is not appreciated. 21:30 Neuro: Orientation: to person, place \T\ time. Mentation: is normal, Motor: moves all fours, strength is normal. Vital Signs: 19:15 BP 114 / 70; Pulse 86; Resp 18; Temp 98.1; Pulse Ox 96% ; Weight 102.06 kg; Height 5 ll1 ft. 5 in. (165.10 cm); Pain 4/10; 21:34 BP 120 / 65 Supine; Pulse 78; Resp 19; Pulse Ox 98% on R/A; Pain 5/10; fu 21:34 BP 115 / 68 Sitting; Pulse 84; fu 21:34 BP 120 / 72 Standing; Pulse 88; fu 22:00 BP 116 / 66; Pulse 76; Resp 19; Pulse Ox 100% on R/A; fu 23:00 BP 108 / 66; Pulse 72; Temp 98.7; Pulse Ox 100% on R/A; fu 19:15 Body Mass Index 37.44 (102.06 kg, 165.10 cm) ll1 MDM: 20:53 Patient medically screened. [facility] 23:20 Data reviewed: vital signs, nurses notes, lab test result(s), and as a result, I will cp discharge patient. 23:20 Differential diagnosis: gastritis, viral gastroenteritis, gastroenteritis, dehydration. cp Counseling: I had a detailed discussion with the patient and/or guardian regarding: the historical points, exam findings, and any diagnostic results supporting the discharge/admit diagnosis, lab results, to return to the emergency department if symptoms worsen or persist or if there are any questions or concerns that arise at home. Response to treatment: the patient's symptoms have markedly improved after treatment, patient is well hydrated. and as a result, I will discharge patient. 08/22 20: Order name: Basic Metabolic Panel 08/22 21: Order name: CBC with Diff 08/22 20: Order name: Hepatic Function; Complete Time: :27 cp 08/22 22:27 Interpretation: Normal except: AST 41; GLOB 3.7; A/G 1.0. cp 08/22 21: Order name: Lipase; Complete Time: 22:27 cp 08/22 21:07 Order name: Basic Metabolic Panel; Complete Time: 22:27 EDMS 08/22 22:28 Interpretation: Normal except: NA 129; GLUC 126; BUN 50; CRE 1.46; GFR 37. cp 08/22 21:07 Order name: CBC with Automated Diff; Complete Time: 22:27 EDMS 08/22 23:06 Interpretation: Normal except: WBC 3.3; RBC 5.22; MCV 77.3; MCH 26.5; PLT 137. cp 08/22 21:06 Order name: IV Saline Lock; Complete Time: 21:28 cp 08/22 21:06 Order name: Labs collected and sent; Complete Time: 21:28 cp 08/22 21:06 Order name: Orthostatics; Complete Time: 21:42 cp 08/22 23:07 Order name: PO challenge; Complete Time: 23:20 cp Administered Medications: 21:28 Drug: NS 0.9% 1000 ml Route: IV; Rate: 1 bolus; Site: right wrist; fu 23:30 Follow up: IV Intake: 1000ml fu 21:29 Drug: Zofran (Ondansetron) 4 mg Route: IVP; Site: right wrist; fu 22:42 Follow up: Response: No adverse reaction fu Disposition: 08/22/20 23:21 Discharged to Home. Impression: Coronavirus infection, unspecified, Diarrhea, unspecified, Dehydration. - Condition is Stable. - Discharge Instructions: Food Choices to Help Relieve Diarrhea, Adult, Dehydration, Adult, Diarrhea, Adult, COVID-19. - Prescriptions for Zofran 4 mg Oral Tablet - take 1 tablet by ORAL route every 12 hours As needed; 20 tablet. Lomotil 2.5- 0.025 mg Oral Tablet - take 1 tablet by ORAL route every 6 hours As needed; 20 tablet. Albuterol Sulfate 90 mcg/actuation - inhale 1-2 puff by INHALATION route every 4-6 hours; 1 Inhaler. - Medication Reconciliation Form, Thank You Letter, Antibiotic Education, Prescription Opioid Use form. - Follow up: Private Physician; When: 1 - 2 days; Reason: Worsening of condition. - Problem is new. - Symptoms have improved. Addendum: 08/24/2020 07:23 Co-signature as Attending Physician, Lai Schroeder MD I agree with the assessment and c [place] plan of care. Signatures: Dispatcher [employer] EDND Lai Schroeder MD MD cha Page, Corey, PA PA cp Charles Ly, RN RN Carlos Cristobal mw2 Griselda Dubois RN RN ll1 Corrections: (The following items were deleted from the chart) 08/23 00:05 08/22 23:21 08/22/2020 23:21 Discharged to Home. Impression: Coronavirus infection, mw2 unspecified; Diarrhea, unspecified; Dehydration. Condition is Stable. Forms are Medication Reconciliation Form, Thank You Letter, Antibiotic Education, Prescription Opioid Use. Follow up: Private Physician; When: 1 - 2 days; Reason: Worsening of condition. Problem is new. Symptoms have improved. cp 08/24 00:08/22 23:30 Constitutional: The patient appears in no acute distress, alert, awake, cp non-toxic, well developed, well nourished, cp 08/24 00:00 08/22 23:30 Head/Face: Normocephalic, atraumatic. cp cp 08/24 00:08/22 23:30 Eyes: Periorbital structures: appear normal, Conjunctiva: normal, no cp exudate, no injection, Sclera: no appreciated abnormality, Lids and lashes: appear normal, bilaterally, cp 01/22 00:00 01/20 23:30 ENT: External ear(s): are unremarkable, Nose: is normal, Mouth: Lips: dry, cp Oral mucosa: moist, Posterior pharynx: Airway: no evidence of obstruction, patent, cp 08/24 99:08/22 23:30 Chest/axilla: Inspection: normal, Palpation: is normal, no crepitus, no cp tenderness, cp 08/24 99:08/22 23:30 Cardiovascular: Rate: normal, Rhythm: regular, Edema: is not appreciated, cp JVD: is not appreciated, cp 08/24 99:08/22 23:30 Respiratory: the patient does not display signs of respiratory distress, cp Respirations: normal, no use of accessory muscles, no retractions, labored breathing, is not present, Breath sounds: are clear throughout, no decreased breath sounds, no stridor, no wheezing, cp 08/24 99:08/22 23:30 Abdomen/GI: Inspection: abdomen appears normal, Bowel sounds: active, all cp quadrants, Palpation: abdomen is soft and non-tender, in all quadrants, rebound tenderness, is not appreciated, voluntary guarding, is not appreciated, involuntary guarding, is not appreciated, cp 08/24 99:08/22 23:30 Neuro: Orientation: to person, place \T\ time. Mentation: is normal, Motor: cp moves all fours, strength is normal, cp 08/24 99:08/23 23:30 Data reviewed: vital signs, nurses notes, lab test result(s), cp cp
[2020-08-23 00:30] VITALS: O2SAT 100
[2020-08-23 00:31] VITALS: BP 108/66; TEMP 98.7
== END 2020-08-23 00:05 | disposition home or self-care (01) ==
LOC: ER 18:57
DX: U07.1 COVID-19 (principal); E86.0 Dehydration; I10 Essential (primary) hypertension
CPT/HCPCS: 85025; 80048; 36415; 80076; 83690; 96374; 99284; J7030; J2405

== ENCOUNTER 2020-08-25 11:44 | Emergency (ER) | payer OTHER ==
--- OUTSIDE RECORDS SUMMARY | 2020-08-25 11:46 | XMS REPORT | Clinical Summary ---
:1960 Author Organization [facility] Address [address] [place] [address] Care Team Providers Name Role Phone Asked, [...] times a Cleanu p) day with meals. [id number] Take 9 g by 1 packet 0 05/18/2019 Disco ntinued [id number] mouth take as 0 140-9-5.2 gram directed [...] Take 1 60 capsule 3 07/19/2020 Discontinued [id number] capsule by 1 (Med L ist (Rheumate, with mouth 2 (two) Cleanup) [facility] times a day. 1-1-500 mg capsule HYDROcodone-acetam [...] Added automatically from request for francine hai [id number] De Quervain's tenosynovitis, right 08/12/2018 Osteoarthritis of right knee 07/15/2016 Encounters Date Type Specialty Care Team Description 08/13/2020 Anesthesia Event Orthopedic Surgery Alfonso Mei MD 08/13/2020 Surgery Orthopedic Surgery José Martinez SCELANNY, KNEEMaxine MD MEDIAL, ARTHROS COPIC 08/13/2020 Hospital Encounter Orthopedic Surgery Richard Martinez MD tear of medial meniscus of lef t knee 08/13/2020 Travel 08/10/2020 Telemedicine Orthopedic Surgery Flvaia Moone t handle Wanda tear of medial [...] Duran MD 06/20/2020 Travel 06/18/2020 Travel after 08/25/2019 Surgical History Surgery Date Site/Laterality Comments SECTION x3 KNEE ARTHROSCOPY Right CHOLECYSTECTOMY CARPAL TUNNEL RELEASE Right 1998 ARTHROPLASTY, KNEE, 07/15/2016 Knee/Right Procedure: T OTAL KNEE UNICOMPARTMENTAL ARTHROPLASTY; Surgeon: José Martinez MD; Location: [facility] OR; Service: Orthopedics; Laterality: Righ t; Medical devices from this surgery are in the Implants sec tion. GALLBLADDER SURGERY ORTHOPEDIC SURGERY RELEASE, TENDON, HAND, FOR 09/24/2018 Hand/Right Proce dure: RELEASE, DEQUERVAIN'S TENOSYNOVITIS TENDO N, HAND, FOR DEQUERVAIN'S TENOSYNOVITIS; Surgeon: Maryanne Duran MD; Locatio n: [facility] OR; Service: Hand; Laterality: Righ t; TUBAL LIGATION 03/03/1987 - 04/02/1987 COLONOSCOPY 08/03/2011 - 08/02/2012 ABDOMINAL SURGERY 08/03/2015 - 08/02/2016 JOINT REPLACEMENT 08/03/2015 - 08/02/2016 MENISCECTOMY, KNEE, MEDIAL, 08/13/2020 Knee/Left Proc edure: ARTHROSCOPIC MENISCECTOMY, KN EE, MEDIAL, ARTHROSC OPIC; Surgeon: José Gonzalez MD; Location: [facility]; Service: Orthopedics; Laterality: [...] with No / Unsure 08/13/2020 6:13 AM [facility] someone who was confirmed or suspected to have Coronavirus / COVID-19? Last Filed Vital Signs Vital Sign Reading Time Taken Comments Blood Pressure 171/76 08/13/2020 1:00 PM [facility] Pulse 89 08/13/2020 1:00 PM [facility] Temperature 37.1 C (98.8 F) 08/13/2020 1:00 PM [facility] Respiratory Rate 17 08/13/2020 1:00 PM [facility] Oxygen Saturation 98% 08/13/2020 1:00 PM [facility] Inhaled Oxygen Concentration - - Weight 104 kg (229 lb 12.8 oz) 08/13/2020 7:00 AM [facility] Height 165.1 cm (5' 5") 08/13/2020 7:00 AM [facility] Body Mass Index 38.24 08/13/2020 7:00 AM [facility] Plan of Treatment Health Maintenance Due Date Last Done Comments DIABETES: RETINAL EYE EXAM 1971 DIABETIC FOOT EXAM 1971 URINE MICROALBUMIN 1971 COVID-19 VACCINE (1 of 2) 1977 CERVICAL CANCER SCREENING 1982 BREAST CANCER SCREENING 2011 COLONOSCOPY SCREENING 2011 SHINGLES VACCINES (#1) 2011 INFLUENZA VACCINE 03/03/2020 Implants Implanted Type Area Contract Engineer Device Shelf Model / Identifier Expiration Serial / Date Lot Univation F Meniscal Cpomonent Knee Implants, Right: [employer] 11/30/2020 [id number] / Implanted: Qty: 1 on 07/15/2016 by José Martinez MD at [facility] Repairs, Knee / Reconstruction [id number] As Univation Xf Femurf3 Rm Knee Implants, Right: [employer] 10/31/2025 [id number] / Implanted: Qty: 1 on 07/15/2016 by José Martinez MD at [facility] Repairs, Knee / Reconstruction [id number] As Univation Xf Tibiat2 Rm Knee Implants, Right: [employer] 10/31/2025 [id number] / Implanted: Qty: 1 on 07/15/2016 by José Martinez MD at [facility] Repairs, Knee / Reconstruction [id number] Cement Bone R+G 1dose [place] - [id number] Knee Joint Right: [employer] 03/02/2020 [id number] / Implanted: 07/15/2016 at [facility] (Quantity not on file) Implants Knee / [id number] Pin Headed Thred Univl 3.2x25mm Hope - [id number] Knee Joint N/A: AESC[employer]AP ORTHO 07/03/2026 [id number] / Implanted: 07/17/2016 at [facility] (Quantity not on file) Implants N/A / NA Procedures Procedure Name Priority Date/Time Associated Comments Diagnosis POC GLUCOSE Routine 08/13/2020 10:34 Results for this AM [facility] procedure are i n the results section. IA AN ELECTIVE Routine 08/13/2020 9:49 Results f or this SUPRAGLOTTIC AIRWAY AM [facility] procedur e are in the results section. MENISCECTOMY, KNEE, 08/13/2020 9:19 Old bucket handle MEDIAL, ARTHROSCOPIC AM [facility] tear of medial meniscus of left knee POC GLUCOSE Routine 08/13/2020 7:06 Results for this AM [facility] procedure are i n the results section. COVID-19 QUALITATIVE Routine 08/10/2020 2:32 Old bucket handl e Results for this PCR PM [facility] tear of medial procedure are in meniscus of left the results knee section. MRI KNEE WO CONTRAST Routine 06/26/2020 3:58 Acute pain of le ft Results for this LEFT PM [facility] knee procedure are in Acute internal the results derangement of left section. knee XR KNEE 4+ VW LEFT Routine 06/20/2020 3:08 Acute pain of left Results for this PM [facility] knee procedure are i n the results section. IA ARTHROCENTESIS Routine 06/20/2020 2:45 Acute pain of left Results for this ASPIR&/INJ MAJOR PM [facility] knee procedure are in JT/BURSA W/O US Acute internal the result s derangement of left section. knee after 08/25/2019 Results POC glucose (08/13/2020 10:34 AM [facility])Only the most recent of2 resultswithin the time period is included. Pathologist Sig nature POC glucose 115 (H) 65 - 99 mg/dL [facility] Comment: HOSPITAL Rand Tacker Name: Nathaniel Kerns Device ID: [id number] Chartable: [facility] Notified RN Specimen Blood Performing Organization Address City/State/ZIP Code Phon e Number [facility] DEPARTMENT OF PATHOLOGY AND [address] [place], [place] [address] GENOMIC MEDICINE [facility] [address] [place] [id number] Airway (08/13/2020 9:49 AM [facility]) Narrative Performed At Thomas Clifford CRNA 08/13/2020 9:50 AM Airway Date/Time: 08/13/2020 9:38 AM Location: OR Performed by: BESSEMER CONVERTER OPERATOR/AA Anesthesiologist: Alfonso Mei MD Resident/BESSEMER CONVERTER OPERATOR/AA: Thomas Clifford Authorized by: Alfonso Mei MD Urgency: Elective Difficult Airway: No Preoxygenated with 100% O2: Yes C-spine Precautions Maintained Throughou t: Yes Mask Ventilation: Not attempted Final Airway Type: Supraglottic airway Final LMA: I-Gel LMA Size: 4 Number of Attempts at Approach: 1 Atraumatic insertion of LMA. Soft tissue unchanged fr om baseline. COVID-19 qualitative PCR (08/10/2020 2:32 PM [facility]) Interpretation Negative results do not prec lude 2019-nCoV infection and should not be used as the sole basis for treatment or other patient management decisions. Negative results must be combined with clinical observations, patient history, and epidemiological [facility] information. [facility] COVID-19 qualitative Not-Detected Not-Detecte [facility] PCR result d [facility] COVID-19 qualitative See link below for [facility] PCR PDF Lab [facility] ReportComment: Case HOSPITAL Number: [id number] Specimen Nasopharyngeal swab Performing Organization Address City/State/ZIP Code Phon e Number [facility] DEPARTMENT OF PATHOLOGY AND [address] [place], [place] [address] GENOMIC MEDICINE [facility] [address] [place] [address] [facility] MRI Knee Left Wo Contrast (06/26/2020 3:58 PM [facility]) Specimen Narrative Performed At This result has [...] medial menisc us. 2. Moderate chondromalacia patella. *[facility]-[id number] Procedure Note Hm Interface, Radiology Results Incoming - 06/26/2020 4:06 PM [facility] MRI KNEE WO CONTRAST LEFT CLINICAL INDICATION: [...] the medial meniscus. 2. Moderate chondromalacia patella. *[facility]-[id number] Performing Organization Address City/State/ZIP Code Phon e Number [facility] [address] [place] [address] XR Knee 4+ Vw Left (06/20/2020 3:08 PM [facility]) Specimen Narrative Performed At This result has an attachment that is no t available. PA, lateral, notch and patella view of the left knee shows a patella [facility] malalignment and also minimal medial compartment narro wing. There are no spurs or soft tissue calcification. Performing Organization Address City/State/ZIP Code Phon e Number [facility] [address] [place] [address] Large Joint Arthrocentesis: knee, L knee (06/20/2020 2:45 PM [facility]) Narrative Performed At Gerry Duran MD 06/20/2020 [...] wel l with no immediate complications after 08/25/2019 (Home) [address] [phone] [place], [place] (Work) [address] Advance Directives For more information, please contact: [phone] Type Date Recorded Patient Superintendent Maintenance Explanati on Advance Directives, Living Will 08/10/2020 2:25 PM and Medical Power of Managed Care Manager
--- OUTSIDE RECORDS SUMMARY | 2020-08-25 11:47 | XMS REPORT | Continuity of Care Document ---
:1960 Author Organization [facility] t Address [address] [place] [address] Care Team Providers Name Role Phone Asked, Pcp Primary Care Physician Unavailable Maxine Martinez MD Attending Clinician Chaz Mei MD Attending Clinician Jenifer Roche Attending Clinician JOHNATHAN Attending Clinician Unavailable SEN Admitting Clinician Unavailable Payers Payer Name Policy Type Policy Effective Date Expiration Date Sour ce Number AETNAAETNA PPO [id number] 2000 [place] OPEN 00:00:00 [facility] [id number] 2000-Present PPO Problems Condition Condition Condition Status Onset Resolution Last Treating Co mments Source Name Details Category Date Date Treatment Clinician Date Old bucket Old bucket Disease Active 2019-08 Overview : [place] handle handle 2-22 Added [facility] tear of tear of 00:00: automatic st medial medial 00 ally from meniscus meniscus request of left of left for knee knee surgery [id number] De De Disease Active [place] Quervain's Quervain's 1-10 Me thodi tenosynovi tenosynovi 00:00: st tis, right tis, right 00 Osteoarthr Osteoarthr Disease Active 2015-08 [place] itis of itis of 2-13 [facility] right knee right knee 00:00: st 00 Allergies, Adverse Reactions, Alerts This patient has no known allergies or adverse reactions. Family History Family Member Diagnosis Comments Start Date Stop Date Source Natural father Cancer [facility] Natural father Colon cancer [place] [facility] Natural mother Diabetes [facility] Natural mother Hypertension [place] [facility] Natural mother Stroke [facility] Social History Social Habit Start Date Stop Date Quantity Comments Source Sex Assigned At [facility] ethodist Exposure to Not sure [place] Metho dist SARS-CoV-2 (event) Cigarettes smoked 2020-08-14 2020-08-14 [place] [facility] current (pack per 00:00:00 00:00:00 day) - Reported Cigarette 2020-08-14 2020-08-14 [place] ist pack-years 00:00:00 00:00:00 Tobacco use and 2020-08-14 2020-08-14 Never used [place] Fatuma [facility]ist exposure 00:00:00 00:00:00 Alcohol intake 2020-08-14 2020-08-14 Current drinker [place] [facility] 00:00:00 00:00:00 of alcohol (finding) Tobacco Comment 2016-07-15 2016-07-15 quit 30 years [place] [facility] 00:00:00 00:00:00 ago Alcohol Comment 2016-07-15 2016-07-15 [place] of drinks [place] [facility] 00:00:00 00:00:00 a week History of tobacco 1979-04-09 1980-01-16 Current smoker [place] [facility] use 00:00:00 00:00:00 Smoking Status Start Date [...] Max Daily Amount: 6 tablets Accu-Chek Yes [place] Guide test 08-03 [facility] strips 00:00: st [...] total) by mouth daily for 30 days. ks-tetrahyd 2019-08- No 1{capsu Q.5D Take 1 [place] rofolate-B1 09-19 le} capsule by [facility] qureshi [id number] 00:00: 00:[address] (Rheumate, 00 :00 (two) with times a Quatrefolic day. ,) 1-1-500 mg capsule metFORMIN 2019-08 Yes [place] XR 2-09 [facility] (GLUCOPHAGE 00:00: st -XR) [...] mcg 00 (TWO) tablet TIMES A WEEK. [id number] 2018-08 9g Take 9 g [place] [...] blood 2020-08-13 13:00:00 171 mm[Hg] [place] [facility] pressure Diastolic blood 2020-08-13 13:00:00 76 mm[Hg] [...] Performed POC GLUCOSE 2020-08-13 10:34:00 Rogers Martinez [place] AN ELECTIVE 2020-08-13 09:49:53 Thomas Clifford SUPRAGLOTTIC AIRWAY MENISCECTOMY, KNEE, 2020-08-13 09:19:00 Rogers Martinez storosibel Pappas MEDIAL, ARTHROSCOPIC POC GLUCOSE 2020-08-13 07:06:00 Rogers Martinez COVID-19 QUALITATIVE PCR 2020-08-10 14:32:00 Wanda Moon MRI KNEE WO CONTRAST LEFT 2020-06-26 15:58:35 Kermit Duran XR KNEE 4+ VW LEFT 2020-06-20 15:08:24 Kermit Duran [place] ARTHROCENTESIS 2020-06-20 14:45:00 Kermit Duran ASPIR&/INJ MAJOR JT/BURSA W/O US Plan of Care Planned Activity Planned Date Details Comments Source Future Scheduled 2020-03-03 INFLUENZA VACCINE [place] [facility] Test 00:00:00 [code = INFLUENZA VACCINE] Future Scheduled 2011 BREAST CANCER [facility] thodist Test 00:00:00 SCREENING [code = BREAST CANCER SCREENING] Future Scheduled 2011 COLONOSCOPY SCREENING [place] [facility] Test 00:00:00 [code = COLONOSCOPY SCREENING] Future Scheduled 2011 SHINGLES VACCINES (#1) [place] [facility] Test 00:00:00 [code = SHINGLES VACCINES (#1)] Future Scheduled 1982 Screening for [facility] thodist Test 00:00:00 malignant neoplasm of cervix (procedure) [code = 744117548] Future Scheduled 1977 COVID-19 VACCINE (1 of [place] [facility] Test 00:00:00 2) [code = COVID-19 VACCINE (1 of 2)] Future Scheduled 1971 DIABETES: RETINAL EYE [place] [facility] Test 00:00:00 EXAM [code = DIABETES: RETINAL EYE EXAM] Future Scheduled 1971 DIABETIC FOOT EXAM [place] [facility] Test 00:00:00 [code = DIABETIC FOOT EXAM] Future Scheduled 1971 URINE MICROALBUMIN [place] [facility] Test 00:00:00 [code = URINE MICROALBUMIN] Encounters Start End Encounter Admission Attending Care Care Encounter Source Date/Time Date/Time Type Type Clinicians Facility Department ID 2020-08-13 2020-08-13 Out[place] [id number] [place] 00:00:00 00:00:00 [facility] [address] 2020-08-10 2020-08-10 Outpatient [facility] [id number] [place] 00:00:00 00:00:[address] 2020-08-10 2020-08-10 Outpatient [facility] [id number] [place] 00:00:00 00:00:00 [facility] [address] 2020-07-18 2020-07-18 Outpatient [facility] [id number] [place] 00:00:00 00:00:00 [facility] [address] 2020-07-05 2020-07-05 Outpatient [facility] [id number] [place] 00:00:00 00:00:00 [facility] [address] 2020-06-26 2020-06-26 Outpatient [facility] [id number] [place] 00:00:00 00:00:00 [place] [address] 2020-06-20 2020-06-20 Outpatient [facility] [id number] [place] 00:00:00 00:00:00 [place] [address] 2020-06-20 2020-06-20 [facility] [id number] [place] 00:00:00 00:00:00 [place] [address] Results Test Description Test Time Test Comments Results Result Comments Source POC glucose 2020-08-13 10:35:20 Test Item Value Reference Range Interpretation Comme nts POC glucose (test code = 115 mg/dL 65-99 H Ope rator Name: Nathaniel Haile [id number]) ID: [id number] hartable: [facility] Notified forest management professor Interpretation (test code = Abnormal 02142-9) [place] [id number] 09:49:53Thomas Clifford CRNA 08/13/2020 9:50 AMAirway Date/Time: 08/13/2020 9:38 AM Location: OR Performed by: PLANOGRAPH OPERATOR/AAAnesthesiologist: Alfonso Mei MDResident/PLANOGRAPH OPERATOR/AA: Thomas Clifford HAuthorized by: Alfonso Mei MD Urgency: ElectiveDifficult Airway: No Preoxygenated with 100% O2: Yes C-spine Precautions Maintained Throughout: Yes Mask Ventilation: Not attemptedFinal Airway Type: Supraglottic airwayFinal LMA: I-GelLMA Size: 4Number of Attempts at Approach: 1 Atraumatic insertion of LMA. Soft tissue unchanged from baseline.Ky PappasScdougie Joint Arthrocentesis: knee, L [id number] 14:45:00Kermit Duran MD 06/20/2020 4:06 PMLarge Joint [...]
[2020-08-25] MEDS ORDERED: ONDANSETRON 4 MG/2 ML VIAL ONE (12:19)
[2020-08-25] MEDS ORDERED: NA CHLORIDE 0.9% 1,000 ML ONE (12:19)
[2020-08-25 12:32] LABS: Absolute Lymphocytes (CBC) 0.3 K/uL (0.7-4.9); Basophils % 0.2 % (0-1.3); Hematocrit 41.1 % (36.0-45.0); Lymphocytes % 6.9 % (15.3-44.8); MPV 8.6 fL (7.6-11.3)
--- NOTE | 2020-08-25 12:35 | RAD REPORT ---
EXAM DESCRIPTION: Isaac Single View08/25/2020 12:14 pm CLINICAL HISTORY: Cough COMPARISON: 2010 FINDINGS: Moderate right and mild left pulmonary opacities Heart is normal sized IMPRESSION: Moderate right and mild left pulmonary opacities probably pneumonia
[2020-08-25 12:51] LABS: Potassium 4.3 mmol/L (3.5-5.1)
[2020-08-25 13:05] LABS: Blood Morphology Comment NOTED (NOT SEEN); Platelet Estimate ADEQ
--- NOTE | 2020-08-25 13:44 | EDPHYS ---
Physician Documentation [facility] Name: Tabitha Jim Age: 60 yrs Sex: Female : 1960 Arrival Date: 08/25/2020 Time: 11:47 Bed 18 Private MD: ED Physician Gil Saba HPI: 08/25 13:52 This 60 yrs old Female presents to ER via Ambulatory with complaints of Covid kb + Nausea. 13:52 The patient or guardian reports cough, that is intermittent, described as mild, with no kb sputum. Onset: The symptoms/episode began/occurred 4 day(s) ago. Severity of symptoms: At their worst the symptoms were moderate, in the emergency department the symptoms are unchanged. Modifying factors: The symptoms are alleviated by nothing, the symptoms are aggravated by nothing. Associated signs and symptoms: Pertinent positives: diarrhea, nausea. The patient has not experienced similar symptoms in the past. The patient has been recently seen at the [facility] Emergency Department, this week, for similar complaints labs were performed. Pt reports she was seen here 4 days ago for cough, nausea and diarrhea. Tested positive for COVID at that time. CAme back today because symptoms are no better. . Historical: - Allergies: 12:02 No Known Allergies; jd3 - PMHx: 12:02 Diabetes - IDDM; Hypertension; Hypothyroidism; jd3 - PSHx: 12:02 ; Knee surgery; Cholecystectomy; jd3 - Immunization history:: Adult Immunizations up to date. - Social history:: Smoking status: Patient denies any tobacco usage or history of. ROS: 13:51 Constitutional: Negative for fever, chills, and weight loss, Cardiovascular: Negative kb for chest pain, palpitations, and edema, Back: Negative for injury and pain, MS/Extremity: Negative for injury and deformity, Skin: Negative for injury, rash, and discoloration, Neuro: Negative for headache, weakness, numbness, tingling, and seizure. 13:51 Respiratory: Positive for cough, Negative for dyspnea on exertion, hemoptysis, orthopnea, pleurisy, shortness of breath, sputum production, wheezing. 13:51 Abdomen/GI: Positive for nausea, diarrhea. Exam: 13:51 Constitutional: This is a well developed, well nourished patient who is awake, alert, kb and in no acute distress. Head/Face: Normocephalic, atraumatic. Chest/axilla: Normal chest wall appearance and motion. Nontender with no deformity. No lesions are appreciated. Cardiovascular: Regular rate and rhythm with a normal S1 and S2. No gallops, murmurs, or rubs. Normal PMI, no JVD. No pulse deficits. Respiratory: Lungs have equal breath sounds bilaterally, clear to auscultation and percussion. No rales, rhonchi or wheezes noted. No increased work of breathing, no retractions or nasal flaring. Abdomen/GI: Soft, non-tender, with normal bowel sounds. No distension or tympany. No guarding or rebound. No evidence of tenderness throughout. Skin: Warm, dry with normal turgor. Normal color with no rashes, no lesions, and no evidence of cellulitis. MS/ Extremity: Pulses equal, no cyanosis. Neurovascular intact. Full, normal range of motion. Neuro: Awake and alert, GCS 15, oriented to person, place, time, and situation. Cranial nerves II-XII grossly intact. Motor strength 5/5 in all extremities. Sensory grossly intact. Cerebellar exam normal. Normal gait. Vital Signs: 12:02 BP 120 / 84; Pulse 74; Resp 20 S; Temp 98.7(O); Pulse Ox 97% on R/A; Weight 102.06 kg jd3 (R); Height 5 ft. 5 in. (165.10 cm) (R); Pain 8/10; 13:00 BP 107 / 63; Pulse 72; Resp 17; Pulse Ox 100% on 2 lpm NC; rb3 13:13 BP 107 / 62 Supine; Pulse 69; Resp 16; Pulse Ox 99% on 2 lpm NC; mh5 13:15 BP 116 / 68 Sitting; Pulse 74; Resp 17; Pulse Ox 99% on 2 lpm NC; mh5 13:17 BP 104 / 64 Standing; Pulse 83; Resp 17; Pulse Ox 99% on 2 lpm NC; mh5 12:02 Body Mass Index 37.44 (102.06 kg, 165.10 cm) jd3 MDM: 11:53 Patient medically screened. kb 13:40 Data reviewed: vital signs, nurses notes. Data interpreted: Pulse oximetry: on room air kb is 99 %. Interpretation: normal. Counseling: I had a detailed discussion with the patient and/or guardian regarding: the historical points, exam findings, and any diagnostic results supporting the discharge/admit diagnosis, lab results, radiology results, the need for outpatient follow up, a family practitioner, to return to the emergency department if symptoms worsen or persist or if there are any questions or concerns that arise at home. 08/25 11:58 Order name: CBC with Diff; Complete Time: 13:06 kb 08/25 11:58 Order name: Basic Metabolic Panel; Complete Time: 12:55 kb 08/25 11:58 Order name: Chest Single View XRAY; Complete Time: 12:37 kb 08/25 12:34 Order name: Manual Differential; Complete Time: 13:06 EDMS 08/25 11:58 Order name: IV Start; Complete Time: 12:43 kb 08/25 13:11 Order name: Orthostatics; Complete Time: 13:35 kb Administered Medications: 12:40 Drug: NS 0.9% 1000 ml Route: IV; Rate: 1000 ml; Site: right forearm; rb3 12:41 Drug: Zofran (Ondansetron) 4 mg Route: IVP; Site: right forearm; rb3 Disposition: 16:17 Co-signature as Attending Physician, Gil Saba MD. rn Disposition: 08/25/20 13:44 Discharged to Home. Impression: Coronavirus infection, unspecified, Dehydration, Diarrhea, unspecified, Viral pneumonia, unspecified. - Condition is Stable. - Discharge Instructions: Food Choices to Help Relieve Diarrhea, Adult, Diarrhea, Adult, Bbcy-ux-Pgje, Viral Respiratory Infection, Gfjo-Dn-Nnjx, COVID-19. - Prescriptions for Bentyl 20 mg Oral Tablet - take 1 tablet by ORAL route every 6 hours As needed; 20 tablet. promethazine 25 mg Oral Tablet - take 1 tablet by ORAL route every 8 hours As needed; 16 tablet. - Medication Reconciliation Form, Thank You Letter, Antibiotic Education, Prescription Opioid Use form. - Follow up: Emergency Department; When: As needed; Reason: Worsening of condition. Follow up: Private Physician; When: 2 - 3 days; Reason: Recheck today's complaints, Continuance of care, Re-evaluation by your physician. Signatures: Dispatcher [facility] More Cruz, ILIR-C ILIR-Tracie Alba, RN RN iw Gil Saba MD MD rn Davies, Jonathon, RN RN jd3 Michelle Paul, RN RN rb3 Corrections: (The following items were deleted from the chart) 13:45 13:44 08/25/2020 13:44 Discharged to Home. Impression: Coronavirus infection, kb unspecified; Dehydration; Diarrhea, unspecified. Condition is Stable. Forms are Medication Reconciliation Form, Thank You Letter, Antibiotic Education, Prescription Opioid Use. Follow up: Emergency Department; When: As needed; Reason: Worsening of condition. Follow up: Private Physician; When: 2 - 3 days; Reason: Recheck today's complaints, Continuance of care, Re-evaluation by your physician. kb 15:20 13:45 08/25/2020 13:44 Discharged to Home. Impression: Coronavirus infection, iw unspecified; Dehydration; Diarrhea, unspecified; Viral pneumonia, unspecified. Condition is Stable. Discharge Instructions: Food Choices to Help Relieve Diarrhea, Adult, Diarrhea, Adult, Arsh-pd-Hdqy, Viral Respiratory Infection, Zxln-Pm-Hgbr, COVID-19. Prescriptions for Bentyl 20 mg Oral Tablet - take 1 tablet by ORAL route every 6 hours As needed; 20 tablet, promethazine 25 mg Oral Tablet - take 1 tablet by ORAL route every 8 hours As needed; 16 tablet. and Forms are Medication Reconciliation Form, Thank You Letter, Antibiotic Education, Prescription Opioid Use. Follow up: Emergency Department; When: As needed; Reason: Worsening of condition. Follow up: Private Physician; When: 2 - 3 days; Reason: Recheck today's complaints, Continuance of care, Re-evaluation by your physician. kb
--- NOTE | 2020-08-25 13:44 | ER ---
Nurse's Notes [facility] Name: Tabitha Jim Age: 60 yrs Sex: Female : 1960 Arrival Date: 08/25/2020 Time: 11:47 Bed 18 Private MD: Diagnosis: Coronavirus infection, unspecified;Dehydration;Diarrhea, unspecified;Viral pneumonia, unspecified Presentation: 08/25 12:00 Chief complaint: Patient states: "I am COVID + and I am having some nausea and diarrhea jd3 and feeling like I am going to pass out.". Coronavirus screen: cough unrelated to allergies, difficulty breathing, nausea, Client presents with at least one sign or symptom that may indicate coronavirus-19. Standard/surgical mask placed on the client. Provider contacted for isolation considerations. Ebola Screen: Patient negative for fever greater than or equal to 101.5 degrees Fahrenheit, and additional compatible Ebola Virus Disease symptoms. Initial Sepsis Screen: Does the patient meet any 2 criteria? No. Patient's initial sepsis screen is negative. Does the patient have a suspected source of infection? No. Patient's initial sepsis screen is negative. Risk Assessment: Do you want to hurt yourself or someone else? Patient reports no desire to harm self or others. Onset of symptoms was August 22, 2020. 12:00 Method Of Arrival: Ambulatory jd3 12:00 Acuity: DON 3 jd3 Historical: - Allergies: 12:02 No Known Allergies; jd3 - PMHx: 12:02 Diabetes - IDDM; Hypertension; Hypothyroidism; jd3 - PSHx: 12:02 ; Knee surgery; Cholecystectomy; jd3 - Immunization history:: Adult Immunizations up to date. - Social history:: Smoking status: Patient denies any tobacco usage or history of. Screenin:00 Abuse screen: Denies threats or abuse. Nutritional screening: Has had N/V for 3 or more rb3 days. Tuberculosis screening: No symptoms or risk factors identified. Fall Risk None identified. Assessment: 12:00 General: Appears in no apparent distress. comfortable, Behavior is calm, cooperative. rb3 Neuro: Level of Consciousness is awake, alert, obeys commands, Oriented to person, place, time, situation. Cardiovascular: Patient's skin is warm and dry. Respiratory: Reports shortness of breath Airway is patent Respiratory effort is even, unlabored, Respiratory pattern is regular, symmetrical. GI: Reports diarrhea, nausea, vomiting. : No signs and/or symptoms were reported regarding the genitourinary system. 13:00 Reassessment: Patient appears in no apparent distress at this time. No changes from rb3 previously documented assessment. Vital Signs: 12:02 BP 120 / 84; Pulse 74; Resp 20 S; Temp 98.7(O); Pulse Ox 97% on R/A; Weight 102.06 kg jd3 (R); Height 5 ft. 5 in. (165.10 cm) (R); Pain 8/10; 13:00 BP 107 / 63; Pulse 72; Resp 17; Pulse Ox 100% on 2 lpm NC; rb3 13:13 BP 107 / 62 Supine; Pulse 69; Resp 16; Pulse Ox 99% on 2 lpm NC; mh5 13:15 BP 116 / 68 Sitting; Pulse 74; Resp 17; Pulse Ox 99% on 2 lpm NC; mh5 13:17 BP 104 / 64 Standing; Pulse 83; Resp 17; Pulse Ox 99% on 2 lpm NC; mh5 12:02 Body Mass Index 37.44 (102.06 kg, 165.10 cm) jd3 ED Course: 11:47 Patient arrived in ED. ds1 11:52 More Drew [facility]C [facility] kb 11:52 Gil Saba MD is Attending Physician. kb 12:00 Michelle Paul, KEON is Primary Nurse. rb3 12:00 Patient has correct armband on for positive identification. Bed in low position. Call rb3 light in reach. Side rails up X 1. Pulse ox on. NIBP on. Warm blanket given. 12:02 Triage completed. jd3 12:03 Arm band placed on. jd3 12:14 Chest Single View XRAY In Process Unspecified. EDMS 12:19 Missed attempt(s): 22 gauge in right antecubital area. blood collected. IV would not rb3 advance. 12:39 Inserted saline lock: 22 gauge in right forearm, using aseptic technique. rb3 15:15 No provider procedures requiring assistance completed. IV discontinued, intact, iw bleeding controlled, No redness/swelling at site. Pressure dressing applied. Administered Medications: 12:40 Drug: NS 0.9% 1000 ml Route: IV; Rate: 1000 ml; Site: right forearm; rb3 12:41 Drug: Zofran (Ondansetron) 4 mg Route: IVP; Site: right forearm; rb3 Outcome: 13:44 Discharge ordered by . andie 15:16 Discharged to home ambulatory, with family. iw 15:16 Condition: good 15:16 Discharge instructions given to patient, Instructed on discharge instructions, follow up and referral plans. medication usage, Demonstrated understanding of instructions, follow-up care, medications, Prescriptions given X 2. 15:20 Patient left the ED. iw Signatures: Dispatcher [employer] EDMS More Drew, GREY INSPECTOR-C GREY INSPECTOR-Ckb Elis Ballard ds1 Tracie Jordan, RN RN Bonita Ocasio [facility] Samm Carr RN RN jd3 Michelle Paul RN RN rb3
[2020-08-25 15:25] VITALS: TEMP 98.7
[2020-08-25 15:28] VITALS: O2SAT 99
[2020-08-25 15:30] VITALS: BP 104/64
== END 2020-08-25 15:20 | disposition home or self-care (01) ==
LOC: ER 11:44
DX: U07.1 COVID-19 (principal); J12.9 Viral pneumonia, unspecified; E86.0 Dehydration; R19.7 Diarrhea, unspecified; I10 Essential (primary) hypertension
CPT/HCPCS: 85025; 80048; 36415; 71045; 96374; 99284; J7030; J2405